=== PATIENT | female | born 1945 | race Caucasian/White ===

== ENCOUNTER 2019-10-01 13:27 | Emergency (ER) | payer OTHER ==
[~2019-10-01] VITALS: Ht 152.4 cm; Wt 68.0 kg
[2019-10-01] MEDS ORDERED: SIMVASTATIN5 MG (14:28)
[2019-10-01] MEDS ORDERED: VITAMIN C500 M6 (14:29)
[2019-10-01] MEDS ORDERED: ATIVAN1 M1 (14:29)
== END 2019-10-01 18:43 | disposition home or self-care (01) ==
LOC: ER 13:27
DX: J06.9 Acute upper respiratory infection, unspecified (principal)

== ENCOUNTER 2023-10-28 09:29 | Emergency (ER) | payer OTHER ==
[~2023-10-28] VITALS: Ht 165.1 cm; Wt 69.9 kg
[~2023-10-28 09:29] MED LIST: ATIVAN1 M1; SIMVASTATIN5 MG; VITAMIN C500 M6
[2023-10-28 11:20] LABS: HEMATOCRIT 39.8 % (36.0-45.00); HEMOGLOBIN 13.4 g/dL (12.0-15.00); MEAN CELL VOLUME 93.7 fL (80.00-100.00); MEAN CORPUSCULAR HEMOGLOBIN 31.4 pg (27.00-32.0); MEAN CORPUSCULAR HGB CONC 33.5 g/dl (32.0-36.0); PLATELET COUNT 212 K/uL (150-450); RED BLOOD COUNT 4.25 M/uL (4.00-6.00)
[2023-10-28 11:27] LABS: PH,URINE 6.5 (5.0-8.0); URINE APPEARANCE Clear; URINE BILIRRUBIN Negative (NEGATIVE); URINE BLOOD Large; URINE COLOR Yellow; URINE GLUCOSE Negative (NEGATIVE); URINE LEUKOCYTE Trace; URINE NITRATE Negative; URINE PROTEIN Trace (NEGATIVE)
[2023-10-28 11:30] LABS: URINE BACTERIA 13.8 uL (0.0-1933); URINE EPITHELIAL CELLS 2.4 uL (0.0-38.8); URINE RBC 680.9 uL (0.0-20.8); URINE WBC 4.4 uL (0.0-23.2)
[2023-10-28 11:43] LABS: ALBUMIN 3.6 gm/dL (3.4-5.0); BILIRUBIN TOTAL 0.61 mg/dL (0.3-1.2); BILIRUBIN,CONJUGATED 0.13 mg/dL (0.0-0.2); BILIRUBIN,UNCONJUGATED 0.48 mg/dL (0.0-0.6); CALCIUM 9.1 mg/dL (8.5-10.1); CREATININE SERUM 0.68 mg/dL (0.55-1.02); GFR 83.9; POTASSIUM 3.88 mEq/L (3.5-5.1); TOTAL PROTEIN 7.4 gm/dL (6.4-8.2)
== END 2023-10-28 14:33 | disposition home or self-care (01) ==
LOC: ER
PROVIDERS: General Practice
DX: H66.92 Otitis media, unspecified, left ear (principal)

== ENCOUNTER 2023-11-05 08:50 | Emergency (ER) | payer OTHER ==
[~2023-11-05] VITALS: Ht 165.1 cm; Wt 67.6 kg
[2023-11-05] MEDS ORDERED: SIMVASTATIN5 MG PO (09:05)
[2023-11-05] MEDS ORDERED: METRONIDAZOLE500 MG (09:06)
[2023-11-05] MEDS ORDERED: CIPRO500 MG (09:06)
[2023-11-05 10:14] LABS: HEMATOCRIT 37.8 % (36.0-45.00); HEMOGLOBIN 13.1 g/dL (12.0-15.00); MEAN CELL VOLUME 91.3 fL (80.00-100.00); MEAN CORPUSCULAR HEMOGLOBIN 31.5 pg (27.00-32.0); MEAN CORPUSCULAR HGB CONC 34.6 g/dl (32.0-36.0); PLATELET COUNT 276 K/uL (150-450); RED BLOOD COUNT 4.14 M/uL (4.00-6.00); RED CELL DISTRIBUTION WIDTH 13.4 % (11.5-14.5)
[2023-11-05 10:42] LABS: CALCIUM 9.2 mg/dL (8.5-10.1); CREATININE SERUM 0.64 mg/dL (0.55-1.02); GFR 89.98; POTASSIUM 3.5 mEq/L (3.5-5.1)
[2023-11-05 11:52] LABS: PH,URINE 5.5 (5.0-8.0); URINE APPEARANCE Clear; URINE BILIRRUBIN Negative (NEGATIVE); URINE BLOOD Moderate; URINE COLOR Yellow; URINE GLUCOSE Negative (NEGATIVE); URINE LEUKOCYTE Small; URINE NITRATE Negative; URINE PROTEIN Trace (NEGATIVE); URINE UROBILINOGEN 0.2 E.U./dl
[2023-11-05 11:57] LABS: URINE EPITHELIAL CELLS 8.3 uL (0.0-38.8); URINE RBC 148.8 uL (0.0-20.8); URINE WBC 7.1 uL (0.0-23.2)
== END 2023-11-05 15:18 | disposition home or self-care (01) ==
LOC: ER 08:52
PROVIDERS: Emergency Medicine
DX: R10.9 Unspecified abdominal pain (principal); E78.00 Pure hypercholesterolemia, unspecified
CPT/HCPCS: 36415; 74177; 96365; 96366; 99284; J7030; Q9965